=== PATIENT | male | born 1960 | race Caucasian/White ===

== ENCOUNTER 2018-05-24 11:25 | Emergency (ER) | payer OTHER ==
[~2018-05-24] VITALS: Ht 185.4 cm; Wt 99.8 kg
[2018-05-24] MEDS ORDERED: ELIQUIS5 MG (12:07)
[2018-05-24] MEDS ORDERED: DILTIAZEM 24HR360 M1 (12:08)
[2018-05-24] MEDS ORDERED: FLECAINIDE ACET50 MG (12:09)
[2018-05-24] MEDS ORDERED: ULTRACET PO (15:39)
== END 2018-05-24 17:36 | disposition home or self-care (01) ==
LOC: ER 11:25
DX: L03.115 Cellulitis of right lower limb (principal)

== ENCOUNTER → 2023-06-25 | Outpatient (CLI) | payer OTHER ==
[~2023-06-25] MED LIST: DILTIAZEM 24HR360 M1; ELIQUIS5 MG; FLECAINIDE ACET50 MG; ULTRACET PO
== END | disposition home or self-care (01) ==
LOC: SONOGRAMA 14:53
DX: N18.1 Chronic kidney disease, stage 1 (principal); I12.9 Hypertensive chronic kidney disease with stage 1 through stage 4 chronic kidney disease, or unspecified chronic kidney disease; R80.8 Other proteinuria

== ENCOUNTER 2024-08-30 16:49 | Emergency (ER) | payer OTHER ==
[~2024-08-30] VITALS: Ht 185.4 cm; Wt 108.9 kg
[2024-08-30] MEDS ORDERED: KETOROLAC TROMETHAMINE 30 MG VIAL IV STA (19:21)
[2024-08-30] MEDS ORDERED: MEPERIDINE HCL/PF 50 MG/ML VIAL IM STA (19:22)
[2024-08-30] MEDS ORDERED: PROMETHAZINE HCL 50 MG/ML AMPUL IM STA (19:23)
[2024-08-30] MEDS ORDERED: PROMETHAZINE HCL 50 MG/ML AMPUL IM ONE (19:31)
[2024-08-30] MEDS ORDERED: KETOROLAC TROMETHAMINE 30 MG VIAL ONE (19:31)
== END 2024-08-30 23:52 | disposition home or self-care (01) ==
LOC: ER 16:52
DX: S20.211A Contusion of right front wall of thorax, initial encounter (principal); W10.0XXA Fall (on)(from) escalator, initial encounter; Y93.89 Activity, other specified; Y92.018 Other place in single-family (private) house as the place of occurrence of the external cause; S22.42XA Multiple fractures of ribs, left side, initial encounter for closed fracture

== ENCOUNTER 2025-06-07 11:24 | Outpatient (CLI) | payer OTHER | END 2025-06-07 11:27 | disposition home or self-care (01) | LOC: RAD 11:24 | PROVIDERS: ATTEND Orthopaedic Surgery Adult Reconstructive Orthopaedic Surgery | DX: M17.10 Unilateral primary osteoarthritis, unspecified knee (principal) ==

== ENCOUNTER 2025-06-15 11:01 | Emergency (ER) | payer OTHER ==
[~2025-06-15] VITALS: Ht 185.4 cm; Wt 112.5 kg
[2025-06-15] MEDS ORDERED: JARDIANCE10 MG (12:08)
[2025-06-15] MEDS ORDERED: KETOROLAC TROMETHAMINE 30 MG VIAL IM STA (12:56)
[2025-06-15] MEDS ORDERED: DEXAMETHASONE SODIUM PHOSPHATE 4 MG/ML VIAL IM STA (12:56)
[2025-06-15] MEDS ORDERED: KETOROLAC TROMETHAMINE 30 MG VIAL ONE (13:49)
[2025-06-15] MEDS ORDERED: DEXAMETHASONE SODIUM PHOSPHATE 4 MG/ML VIAL ONE (13:49)
[2025-06-15 15:01] LABS: BASO % 0.2 % (0.1-1.2); EOS # 0.06 (0.04-0.54); EOS % 0.6 % (0.7-7.0); LYMPH # 2.24 (1.18-3.74); LYMPH % 22.5 % (19.3-53.1); MEAN PLATELET VOLUME 8.90 fl (9.4-12.4); MONO # 0.91 (0.24-0.82); MONO % 9.2 % (4.7-12.5); NEUT # 6.68 (1.56-6.13); NEUT % 67.2 % (34.0-71.1); RED CELL DISTRIBUTION WIDTH 11.6 % (11.6-14.4)
[2025-06-15 15:26] LABS: D DIMER 0.46 MG/L
[2025-06-15 15:28] LABS: BUN CREA RATIO 18.0 (7.0-25.0); CREATININE SERUM 1.03 mg/dL (0.70-1.30); GFR 72.94; GLUCOSE FASTING 97.0 mg/dL (65-100); OSMOLALITY SERUM 280.0 MOSM/KG (275-295)
[2025-06-15] MEDS ORDERED: LEVOFLOXACIN750 MG PO (15:52)
[2025-06-15] MEDS ORDERED: NAPROXEN500 MG PO (15:52)
[2025-06-15 15:58] LABS: INR 0.96
== END 2025-06-15 16:17 | disposition home or self-care (01) ==
LOC: ER 11:02
PROVIDERS: General Practice
DX: M79.604 Pain in right leg (principal); I10 Essential (primary) hypertension; I49.8 Other specified cardiac arrhythmias; I73.1 Thromboangiitis obliterans [Buerger's disease]